=== PATIENT | female | born 2000 | race African-American/Black ===

== ENCOUNTER 2023-07-14 11:24 | Emergency (ER) | payer OTHER ==
[~2023-07-14] VITALS: Ht 157.5 cm; Wt 49.9 kg
[2023-07-14 11:46] VITALS: BP 113/69; PULSE 77; RESP 16; TEMP 98.4; O2SAT 100
[2023-07-14] MEDS ORDERED: TETRACAINE 0.5% OPHTH DROPS 4ML BOTHEYE ONE (13:00)
[2023-07-14] MEDS ORDERED: FLUORESCEIN SODIUM 1MG/STRIP BOTHEYE ONE (13:00)
[2023-07-14] MEDS ORDERED: KETO10DR3 LEFTEYE (13:54)
== END 2023-07-14 14:24 | disposition home or self-care (01) ==
LOC: ER 12:44
DX: H57.12 Ocular pain, left eye (principal)
CPT/HCPCS: 99283